=== PATIENT | female | born 1970 | race Hispanic/Latino ===

== ENCOUNTER 2021-08-12 07:26 | Emergency (ER) | payer BC ==
[~2021-08-12] VITALS: Ht 162.6 cm; Wt 81.9 kg
[2021-08-12] MEDS ORDERED: KETOROLAC TROMETHAMINE 30 MG/ML VIAL IV STA (08:07)
[2021-08-12] MEDS ORDERED: ONDANSETRON HCL INJ 2MG/ML 2ML 2 MG/ML VIAL IV STA ×2 (08:07→09:43)
[2021-08-12] MEDS ORDERED: FAMOTIDINE 20 MG/2 ML VIAL IV STA (08:07)
[2021-08-12] MEDS ORDERED: SODIUM CHLORIDE 0.9% 1000ML 1,000 ML IV SCH (08:15)
[2021-08-12] MEDS ORDERED: ONDANSETRON HCL INJ 2MG/ML 2ML 2 MG/ML VIAL ONE (08:15)
[2021-08-12] MEDS ORDERED: FAMOTIDINE 20 MG/2 ML VIAL IV ONE (08:16)
[2021-08-12] MEDS ORDERED: KETOROLAC TROMETHAMINE 30 MG/ML VIAL ONE (08:16)
[2021-08-12] MEDS ORDERED: SODIUM CHLORIDE 0.9% 1000ML 1,000 ML ONE (08:16)
[2021-08-12] MEDS ORDERED: IOPAMIDOL 370 MG/ML 200 ML INFUS..BTL INJ ONE (08:25)
[2021-08-12] MEDS ORDERED: SODIUM CHLORIDE 0.9% 50ML 50 ML ONE (08:25)
[2021-08-12] MEDS ORDERED: Morphine 4mg Syringe 4 MG/ML INJ IV ONE (09:45)
[2021-08-12] MEDS ORDERED: HYDROCODON-ACE1 EA12 PO (09:55)
[2021-08-12] MEDS ORDERED: ONDANSETRON ODT4 MG PO (09:57)
== END 2021-08-12 10:20 | disposition home or self-care (01) ==
LOC: FSED 07:45
DX: R10.11 Right upper quadrant pain (principal); K85.90 Acute pancreatitis without necrosis or infection, unspecified; K80.80 Other cholelithiasis without obstruction; R11.2 Nausea with vomiting, unspecified; R94.31 Abnormal electrocardiogram [ECG] [EKG]
CPT/HCPCS: 74177; 80048; 80076; 81003; 82553; 84484; 85025; 96374; 96375; 96376; 99284; J1885; J2270; J2405; J7030; Q9967